=== PATIENT | male | born 1980 | race African-American/Black ===

== ENCOUNTER 2016-10-28 19:57 | Emergency (ER) | payer MEDICAID ==
[~2016-10-28] VITALS: Ht 188 cm; Wt 80.0 kg
[2016-10-28 20:00] VITALS: BP 112/60; PULSE 120; RESP 20; TEMP 98.2; O2SAT 98
[2016-10-28] MEDS ORDERED: SODIUM CHLOR 0.9% 1000 ML INJ 1,000 ML IV ONE (22:00)
--- NOTE | 2016-10-28 22:05 | PD ---
HPI Chief Complaint: Medical Clearance Time Seen by Provider: 21:58 Travel History International Travel<30 days: No Contact w/Intl Traveler<30days: No Traveled to known affect area: No History of Present Illness HPI The patient is a 36-year-old [place] male who presents emergency department for detoxification. The patient states he went to [facility] earlier today and he referred him to [facility] for alcohol detoxification. The patient states he has been drinking malt liquor on a daily basis, approximately 2-3 per day, and wants to go through detoxification. He also notes a history of illicit drug use, last used "speed ", 3 days ago. He does complain of sleep deprivation of last 48 hours and states he has difficulty sleeping with minimal to no sleep over the last 2 days. The patient denies any history of psychiatric disorders including schizophrenia, bipolar affective disorder, or depression. The patient denies any suicidal or homicidal ideation. Symptoms are moderate, possibly exacerbated by drinking alcohol daily basis and the use of illicit drugs, and there are no current alleviating factors. PFSH Past Medical History Medical History: Denies Significant Hx Tetanus Vaccination: Unknown Influenza Vaccination: No Social History Alcohol Use: Yes (AT LEAST 48 OZ PER DAY) Tobacco Use: Yes (1/2 PPD) Substance Use: Yes (SPEED LAST USED 3 DAYS AGO) Allergies-Medications (Allergen,Severity, Reaction): Coded Allergies: Bactrim (Verified Allergy, Unknown, 10/28/16) Review of Systems Except as stated in HPI: all other systems reviewed are Neg General / Constitutional: Positive: Other (insomnia) HENT: No: Headaches, Lightheadedness Cardiovascular: No: Chest Pain or Discomfort Respiratory: No: Shortness of Breath Gastrointestinal: No: Nausea, Vomiting, Abdominal Pain Psychiatric: Positive: Substance Abuse, No: Depression, Suicidal Ideations, Disorder of Thought, Mood Disorder, Homicidal Ideation Physical Exam Narrative GENERAL: Awake, alert, 36-year-old male appears his stated age and is in no acute respiratory distress. SKIN: Warm and dry. HEAD: Atraumatic. Normocephalic. EYES: Pupils equal and round. Mild injection bilateral. ENT: No nasal bleeding or discharge. Mucous membranes pink and moist. NECK: Trachea midline. No JVD. CARDIOVASCULAR: Regular, tachycardic with a heart rate of 110. RESPIRATORY: No accessory muscle use. Clear to auscultation. Breath sounds equal bilaterally. GASTROINTESTINAL: Abdomen soft, non-tender, nondistended. No rebound tenderness. MUSCULOSKELETAL: No obvious deformities. No clubbing. No cyanosis. No edema. NEUROLOGICAL: Awake and alert. No obvious cranial nerve deficits. Motor grossly within normal limits. Normal speech. Nonfocal. Oriented 4. PSYCHIATRIC: Odd affect. Data Data Last Documented VS Vital Signs Date Time Temp Pulse Resp B/P Pulse Ox O2 Delivery O2 Flow Rate FiO2 10/28/16 20:00 98.2 120 20 112/60 98 Orders Basic Metabolic Panel (Bmp) (10/28/16 22:00) Magnesium (Mg) (10/28/16 22:00) Alcohol (Ethanol) (10/28/16 22:00) Drug Screen, Random Urine (10/28/16 22:00) Sodium Chlor 0.9% 1000 Ml Inj (Ns 1000 M (10/28/16 22:00) Labs Laboratory Tests Test 10/28/16 10/28/16 22:30 23:00 Urine Opiates Screen NEG Urine Barbiturates Screen NEG Urine Amphetamines Screen POS Urine Benzodiazepines Screen NEG Urine Cocaine Screen NEG Urine Cannabinoids Screen NEG Sodium Level 141 MEQ/L Potassium Level 3.6 MEQ/L Chloride Level 105 MEQ/L Carbon Dioxide Level 27.7 MEQ/L Anion Gap 8 MEQ/L Blood Urea Nitrogen 38 MG/DL Creatinine 1.20 MG/DL Estimat Glomerular Filtration 69 ML/MIN Rate Random Glucose 76 MG/DL Calcium Level 8.8 MG/DL Magnesium Level 2.4 MG/DL Ethyl Alcohol Level 17 MG/DL MDM Medical Decision Making Medical Screen Exam Complete: Yes Emergency Medical Condition: Yes Medical Record Reviewed: Yes Interpretation(s) Laboratory Tests Test 10/28/16 10/28/16 22:30 23:00 Urine Opiates Screen NEG Urine Barbiturates Screen NEG Urine Amphetamines Screen POS Urine Benzodiazepines Screen NEG Urine Cocaine Screen NEG Urine Cannabinoids Screen NEG Sodium Level 141 MEQ/L Potassium Level 3.6 MEQ/L Chloride Level 105 MEQ/L Carbon Dioxide Level 27.7 MEQ/L Anion Gap 8 MEQ/L Blood Urea Nitrogen 38 MG/DL Creatinine 1.20 MG/DL Estimat Glomerular Filtration 69 ML/MIN Rate Random Glucose 76 MG/DL Calcium Level 8.8 MG/DL Magnesium Level 2.4 MG/DL Ethyl Alcohol Level 17 MG/DL Differential Diagnosis Differential diagnosis includes polysubstance abuse, alcohol intoxication, illicit drug use, alcohol withdrawal, electrolyte abnormality, dehydration. Narrative Course IV was established, labs are drawn and sent, and the patient was placed on cardiac telemetry monitoring and continuous pulse oximetry monitoring. The patient was administered 1 L of IV fluids. Alcohol level and tox screen were sent to lab. Labs are unremarkable. Tox screen is positive for methamphetamines and alcohol. Patient will be allowed to sleep it off. He will be discharged home on decreasing dose of Librium. He is advised to follow- up [facility]. Diagnosis Primary Impression: Polysubstance abuse Patient Instructions: General Instructions Additional Instructions: Librium as directed. Follow-up at [facility]. Return if symptoms worsen or progress. Med/Other Pt SpecificInfo: Prescription(s) given Scripts Chlordiazepoxide 25 Mg Cap25 Mg PO QID #20 CAP Ref 0 Prov:Esequiel Dahl MD 10/29/16 Disposition: 01 DISCHARGE HOME Condition: Stable Esequiel Dahl MD Oct 28, 2016 22:05
[2016-10-28 23:06] LABS: AMPHETAMINE, URINE POS (NEG); BARBITURATES, URINE NEG (NEG); COCAINE, URINE NEG (NEG)
[2016-10-28 23:36] LABS: BICARBONATE 27.7 MEQ/L (21.0-32.0); MAGNESIUM 2.4 MG/DL (1.5-2.5); POTASSIUM 3.6 MEQ/L (3.5-5.1)
[2016-10-29] MEDS ORDERED: CHLO25CA2 PO (00:14)
== END 2016-10-29 06:33 | disposition home or self-care (01) ==
LOC: EDBD → NEPA 19:57
DX: F19.10 Other psychoactive substance abuse, uncomplicated (principal); F17.210 Nicotine dependence, cigarettes, uncomplicated; G47.00 Insomnia, unspecified
CPT/HCPCS: 80048; 80307; 80320; 83735; 96360; 99283; J7030

== ENCOUNTER 2017-01-16 20:50 | Emergency (ER) | payer MEDICAID ==
[~2017-01-16] VITALS: Ht 180.3 cm; Wt 75.0 kg
[~2017-01-16 20:50] MED LIST: CHLO25CA2 PO
[2017-01-16 20:52] VITALS: BP 136/70; PULSE 116; RESP 18; TEMP 98.8; O2SAT 98
--- NOTE | 2017-01-16 23:42 | PD ---
HPI Chief Complaint: Medical Clearance Time Seen by Provider: 23:42 Travel History International Travel<30 days: No Contact w/Intl Traveler<30days: No Traveled to known affect area: No History of Present Illness HPI 36-year-old male came to the emergency room for using Adderall off the street. He thinks he is addicted to them and has been abusing it. He was prescribed Adderall 10 years ago for attention deficit. Currently he has been using it thinking that it would help him focus. But he is getting these off the street and today he used 3 pills all at the same time in the morning. He occasionally also gets pain pills off the street. Other drugs here and there but not on a routine basis. His business development assistant brought him here because earlier today this morning he found him unable to process things as he was talking to him. He was concerned about him. PFSH Past Medical History Narrative Medical List of his past medical, surgical, social and family history is reviewed from the nursing note. ADHD: Yes Diminished Hearing: No Tetanus Vaccination: Unknown Influenza Vaccination: No Social History Alcohol Use: Yes (AT LEAST 48 OZ PER DAY) Tobacco Use: Yes (1/2 PPD) Substance Use: Yes (SPEED LAST USED 3 DAYS AGO) Allergies-Medications (Allergen,Severity, Reaction): Coded Allergies: Bactrim (Verified Allergy, Unknown, 01/16/17) Comments List of his allergies reviewed from the nursing note. Reported Meds & Prescriptions Reported Meds & Active Scripts Active Chlordiazepoxide (Chlordiazepoxide HCl) 25 Mg Cap 25 Mg PO QID Narrative Medication List of his home medications reviewed from the nursing note. Review of Systems Except as stated in HPI: all other systems reviewed are Neg Physical Exam Narrative GENERAL: Awake, alert, no obvious distress SKIN: Focused skin assessment warm/dry. HEAD: Atraumatic. Normocephalic. EYES: Pupils equal and round. No scleral icterus. No injection or drainage. ENT: No nasal bleeding or discharge. Mucous membranes pink and moist. NECK: Trachea midline. No JVD. CARDIOVASCULAR: Regular rate and rhythm. No murmur appreciated. RESPIRATORY: No accessory muscle use. Clear to auscultation. Breath sounds equal bilaterally. GASTROINTESTINAL: Abdomen soft, non-tender, nondistended. Hepatic and splenic margins not palpable. MUSCULOSKELETAL: No obvious deformities. No clubbing. No cyanosis. No edema. NEUROLOGICAL: Awake and alert. No obvious cranial nerve deficits. Motor grossly within normal limits. Normal speech. PSYCHIATRIC: Appropriate mood and affect; insight and judgment normal. Pressure speech Data Data Last Documented VS Vital Signs Date Time Temp Pulse Resp B/P Pulse Ox O2 Delivery O2 Flow Rate FiO2 01/17/17 00:25 106 01/16/17 21:24 16 01/16/17 20:52 98.8 136/70 98 Room Air Orders Electrocardiogram (01/17/17 ) MDM Medical Decision Making Medical Screen Exam Complete: Yes Emergency Medical Condition: Yes Medical Record Reviewed: Yes Interpretation(s) Twelve-lead EKG was reviewed by me. Normal sinus rhythm, normal axis, tachycardia, nonspecific ST-T wave changes. Heart rate of 106 bpm. Differential Diagnosis Adderall abuse, substance abuse Narrative Course 11:58 PM I have advised the patient to stay of street drugs and try to go to [facility] and see if he can be checked in for drug rehabilitation. He will be given a pamphlet of [facility] that he can use as a primary care. Procedures EKG Prior to Arrival: No Diagnosis Primary Impression: Polysubstance abuse Referrals: Primary Care Physician Additional Instructions: Stay off street drugs. He need to get a primary care so that he can take medication properly prescribed by physician. Please go to [facility] which is also a drug rehabilitation institution. Return to the ER if the condition worsens or any other new concerns. Med/Other Pt SpecificInfo: No Change to Meds Disposition: 01 DISCHARGE HOME Condition: Stable Brendan Woods MD January 16, 2017 23:42
--- NOTE | 2017-01-17 14:18 | EKG ---
Date Performed: 01/17/2017 Time Performed: 00:18:00 PTAGE: 36 years EKG: SINUS TACHYCARDIA ABNORMAL RHYTHM ECG NO PREVIOUS TRACING DOCTOR: Lalo Naranjo Interpretating Date/Time 01/17/2017 14:16:50
== END 2017-01-17 00:26 | disposition home or self-care (01) ==
LOC: NEPD 20:50
DX: F19.10 Other psychoactive substance abuse, uncomplicated (principal); R94.31 Abnormal electrocardiogram [ECG] [EKG]; F17.210 Nicotine dependence, cigarettes, uncomplicated
CPT/HCPCS: 93005

== ENCOUNTER 2017-02-28 01:07 | Emergency (ER) | payer MEDICAID ==
[2017-02-28 01:09] VITALS: BP 116/74; PULSE 67; RESP 20; TEMP 98.7; O2SAT 96
[2017-02-28] MEDS ORDERED: PROPARACAINE HCL 0.5% OPHT SOLN 15 ML BTL LEFT EYE ONE (02:15)
--- NOTE | 2017-02-28 02:19 | PD ---
HPI Chief Complaint: Eye Problems/Injury Time Seen by Provider: 02:15 Travel History International Travel<30 days: No Contact w/Intl Traveler<30days: No Traveled to known affect area: No History of Present Illness HPI Patient is a 36-year-old male presenting to emergency for evaluation of left eye pain and redness. Patient states it started several days ago, he cannot state exactly when. He reports waking up one morning with pain in his eye, this is progressively gotten more red and painful. He denies any him headaches. He cannot open his left eye. He states it's been tearing. He does work contact lenses. PFSH Past Medical History ADHD: Yes Diminished Hearing: No Social History Alcohol Use: Yes (AT LEAST 48 OZ PER DAY) Tobacco Use: Yes (1/2 PPD) Substance Use: Yes (SPEED LAST USED 3 DAYS AGO) Allergies-Medications (Allergen,Severity, Reaction): Coded Allergies: Bactrim (Verified Allergy, Unknown, 02/28/17) Reported Meds & Prescriptions Reported Meds & Active Scripts Active No Active Prescriptions or Reported Medications Review of Systems Except as stated in HPI: all other systems reviewed are Neg Eyes: Positive: Blurred Vision, Drainage, Redness, Pain, Tearing Physical Exam Narrative GENERAL: Thin, well-developed, drowsy male. Resting comfortably in no acute distress. SKIN: Warm and dry. HEAD: Normocephalic. EYES: No scleral icterus. Significant injection to left eye clear drainage noted. Mild edema noted to upper eyelid. Pupils are equal, round, reactive. Extraocular movements are intact. Ulceration noted to the 3 o'clock position on the border of the left iris. NECK: Supple, trachea midline. No JVD or lymphadenopathy. CARDIOVASCULAR: Regular rate and rhythm without murmurs, gallops, or rubs. RESPIRATORY: Breath sounds equal bilaterally. No accessory muscle use. GASTROINTESTINAL: Abdomen soft, non-tender, nondistended. MUSCULOSKELETAL: No cyanosis, or edema. BACK: Nontender without obvious deformity. No CVA tenderness. Data Data Last Documented VS Vital Signs Date Time Temp Pulse Resp B/P Pulse Ox O2 Delivery O2 Flow Rate FiO2 02/28/17 01:09 98.7 67 20 116/74 96 Room Air Orders Proparacaine 0.5% Opth Soln (Alcaine 0.5 (02/28/17 02:15) Moxifloxacin 0.5% Opht Soln (Vigamox 0.5 (02/28/17 03:00) MDM Medical Decision Making Medical Screen Exam Complete: Yes Emergency Medical Condition: Yes Interpretation(s) Vital Signs Date Time Temp Pulse Resp B/P Pulse Ox O2 Delivery O2 Flow Rate FiO2 02/28/17 01:09 98.7 67 20 116/74 96 Room Air Differential Diagnosis Conjunctivitis versus keratitis versus episcleritis versus retained foreign body versus other Narrative Course Patient is a 36-year-old male presenting with left eye pain and redness for 2-3 days. He is a contact lens wear. Physical examination appears consistent with keratitis, patient will be started on moxifloxacin drops. First dose was administered in the emergency department. Patient states that he took NyQuil 2 hours prior to arrival, he is very drowsy. He will be allowed to sleep until he is alert enough to go home. He will be referred to ophthalmology. Patient was encouraged to follow-up with ophthalmology in the morning. He will be given the number of Dr. Munira Doyle. He was advised to return to emergency department immediately for any new or worsening symptoms. Discussed with my attending physician patient's presentation and physical exam findings. Patient is stable for discharge Diagnosis Primary Impression: Keratitis secondary to contact lens Referrals: Munira Doyle MD 1 day Call to make an appointment first thing in the morning Patient Instructions: General Instructions, Keratitis (ED) Additional Instructions: Do not use contact lenses Use medications as directed Follow-up with Dr. Doyle in the morning Return to emergency department immediately for any new or worsening symptoms Med/Other Pt SpecificInfo: Prescription(s) given Scripts Moxifloxacin Opth Drops (Vigamox Opth Drops)0.5 % Soln1 Drop LEFT EYE TID 7 Days Ref 0 Prov:Ciera Hale 02/28/17 Disposition: 01 DISCHARGE HOME Condition: Stable Ciera Hale Feb 28, 2017 02:19
[2017-02-28] MEDS ORDERED: MOXIFLOXACIN 0.5% OPHT SOLN 3 ML BTL LEFT EYE ONE (03:00)
[2017-02-28] MEDS ORDERED: VIGA0.5D LEFT EYE (03:16)
== END 2017-02-28 06:32 | disposition home or self-care (01) ==
LOC: NEPD 01:07
DX: H16.8 Other keratitis (principal); F17.200 Nicotine dependence, unspecified, uncomplicated; Z86.59 Personal history of other mental and behavioral disorders
CPT/HCPCS: 99283

== ENCOUNTER 2017-05-03 21:13 | Inpatient (IN) | payer MEDICAID ==
[~2017-05-03] VITALS: Ht 185.4 cm; Wt 72.7 kg
[~2017-05-03 21:13] MED LIST changes: -CHLO25CA2 PO; +VIGA0.5D LEFT EYE
[2017-05-03 21:25] VITALS: BP 116/82; PULSE 122; RESP 16; TEMP 98.5; O2SAT 96
--- NOTE | 2017-05-03 21:57 | PD ---
Physical Exam Date Seen by Provider: May 03, 2017 Time Seen by Provider: 21:54 Narrative 36 yo male here for evaluation of substance abuse. Came via [facility] to triage. No sleeping for two days and used substances. Last used two days ago. Feels very anxious. No pain. No recent travel. No injuries. History of polysubstance abuse. Very delusional and states being paranoid. Vitals stable in triage. Awaiting bed placement Data Data Last Documented VS Vital Signs Date Time Temp Pulse Resp B/P (MAP) Pulse Ox O2 Delivery O2 Flow Rate FiO2 05/03/17 21:25 98.5 122 16 116/82 (93) 96 Room Air Orders Orders Complete Blood Count With Diff (05/03/17 21:58) Comprehensive Metabolic Panel (05/03/17 21:58) Drug Screen, Random Urine (05/03/17 21:58) Alcohol (Ethanol) (05/03/17 21:58) Salicylates (Aspirin) (05/03/17 21:58) Tylenol (Acetaminophen) (05/03/17 21:58) MDM Medical Record Reviewed: Yes Supervised Visit with ZIGGY: Jhony Marina May 03, 2017 21:57
[2017-05-03 23:58] VITALS: BP 120/70; PULSE 91; RESP 20; TEMP 97.9; O2SAT 97
--- NOTE | 2017-05-04 00:17 | PD ---
HPI Chief Complaint: Anxiety Time Seen by Provider: 00:10 Travel History International Travel<30 days: No Contact w/Intl Traveler<30days: No Traveled to known affect area: No History of Present Illness HPI 36-year-old male with history of substance abuse, presents to the emergency department for evaluation of possible dehydration after using Laury 3 days ago. Patient reports that this was a relapse. He did inject Laury one time during his binge. Patient denies suicidal or homicidal ideations. States that he feels anxious. This is consistent for when he is coming off of his Laury binges. Denies any chest pain or tightness. He has had no fever or chills. He has no other symptoms to report. [facility] Past Medical History Medical History: Denies Significant Hx ADHD: Yes Diminished Hearing: No Immunizations Current: No Tetanus Vaccination: Unknown Influenza Vaccination: No Social History Alcohol Use: Yes (AT LEAST 48 OZ PER DAY) Tobacco Use: Yes (1/2 PPD) Substance Use: Yes (SPEED LAST USED 3 DAYS AGO) Allergies-Medications (Allergen,Severity, Reaction): Coded Allergies: sulfamethoxazole (Unverified Allergy, Unknown, 04/18/17) trimethoprim (Unverified Allergy, Unknown, 04/18/17) Reported Meds & Prescriptions Reported Meds & Active Scripts Active No Active Prescriptions or Reported Medications Review of Systems Except as stated in HPI: all other systems reviewed are Neg Physical Exam Narrative GENERAL: Thin male patient, with jerk like movements, moderately anxious appearing SKIN: Focused skin assessment warm/dry. Multiple superficial scratches over his extremities. HEAD: Atraumatic. Normocephalic. EYES: Pupils equal and round. No scleral icterus. No injection or drainage. ENT: No nasal bleeding or discharge. Mucous membranes pink and moist. NECK: Trachea midline. No JVD. CARDIOVASCULAR: Tachycardic rate and rhythm. RESPIRATORY: No accessory muscle use. Clear to auscultation. Breath sounds equal bilaterally. GASTROINTESTINAL: Abdomen soft, non-tender, nondistended. Hepatic and splenic margins not palpable. MUSCULOSKELETAL: No obvious deformities. No clubbing. No cyanosis. No edema. NEUROLOGICAL: Awake and alert. No obvious cranial nerve deficits. Motor grossly within normal limits. Normal speech. Data Data Last Documented VS Vital Signs Date Time Temp Pulse Resp B/P (MAP) Pulse Ox O2 Delivery O2 Flow Rate FiO2 05/03/17 23:58 97.9 91 20 120/70 (87) 97 Room Air Orders Orders Complete Blood Count With Diff (05/03/17 21:58) Comprehensive Metabolic Panel (05/03/17 21:58) Drug Screen, Random Urine (05/03/17 21:58) Alcohol (Ethanol) (05/03/17 21:58) Salicylates (Aspirin) (05/03/17 21:58) Tylenol (Acetaminophen) (05/03/17 21:58) Creatine Kinase (Cpk) (05/04/17 00:16) Iv Access Insert/Monitor (05/04/17 00:17) Sodium Chlor 0.9% 1000 Ml Inj (Ns 1000 M (05/04/17 00:30) Sodium Chlor 0.9% 1000 Ml Inj (Ns 1000 M (05/04/17 00:30) MDM Medical Decision Making Medical Screen Exam Complete: Yes Emergency Medical Condition: Yes Medical Record Reviewed: Yes Differential Diagnosis Polysubstance abuse versus anxiety versus dehydration versus bite abnormality versus rhabdomyolysis Narrative Course 36-year-old male presents to emergency department for evaluation. Patient has history of polysubstance abuse and admits to Laury use 3 days ago. Feels dehydrated. He appears anxious, without distress. He is mildly tachycardic. I discussed the patient's my attending physician Dr. Saravia who recommends lab work and IV fluid. This is initiated 0100 patient is signed out to Israel Bautista PAC. Disposition will pend his judgment. Diagnosis Primary Impression: Polysubstance abuse Scripts No Active Prescriptions or Reported Meds Condition: Stable Kasia Velasquez May 04, 2017 00:17
[2017-05-04] MEDS ORDERED: SODIUM CHLOR 0.9% 1000 ML INJ 1,000 ML IV ONE ×3 (00:30→10:30)
--- NOTE | 2017-05-04 01:00 | PD ---
Physical Exam Time Seen by Provider: 01:50 Data Data Last Documented VS Vital Signs Date Time Temp Pulse Resp B/P (MAP) Pulse Ox O2 Delivery O2 Flow Rate FiO2 05/03/17 23:58 97.9 91 20 120/70 (87) 97 Room Air Orders Orders Complete Blood Count With Diff (05/03/17 21:58) Comprehensive Metabolic Panel (05/03/17 21:58) Drug Screen, Random Urine (05/03/17 21:58) Alcohol (Ethanol) (05/03/17 21:58) Salicylates (Aspirin) (05/03/17 21:58) Tylenol (Acetaminophen) (05/03/17 21:58) Creatine Kinase (Cpk) (05/04/17 00:16) Iv Access Insert/Monitor (05/04/17 00:17) Sodium Chlor 0.9% 1000 Ml Inj (Ns 1000 M (05/04/17 00:30) Sodium Chlor 0.9% 1000 Ml Inj (Ns 1000 M (05/04/17 00:30) CKMB (05/04/17 00:40) CKMB% (05/04/17 00:40) Lactic Acid (05/04/17 02:03) Admit Order (Ed Use Only) (05/04/17 02:10) Labs Laboratory Tests Test 05/04/17 00:40 05/04/17 00:45 05/04/17 01:20 05/04/17 02:08 Blood Urea Nitrogen 54 MG/DL Creatinine 5.54 MG/DL Random Glucose 73 MG/DL Total Protein 9.6 GM/DL Albumin 4.9 GM/DL Calcium Level 9.2 MG/DL Alkaline Phosphatase 102 U/L Aspartate Amino Transf (AST/SGOT) 58 U/L Alanine Aminotransferase (ALT/SGPT) 57 U/L Total Bilirubin 1.2 MG/DL Sodium Level 137 MEQ/L Potassium Level 4.4 MEQ/L Chloride Level 96 MEQ/L Carbon Dioxide Level 18.7 MEQ/L Anion Gap 22 MEQ/L Estimat Glomerular Filtration Rate 14 ML/MIN Total Creatine Kinase 869 U/L Creatine Kinase MB 15.5 NG/ML Creatine Kinase MB % 1.8 % Acetaminophen Level LESS THAN 2.0 MCG/ML Ethyl Alcohol Level LESS THAN 3 MG/DL White Blood Count 11.2 TH/MM3 Red Blood Count 4.84 MIL/MM3 Hemoglobin 12.5 GM/DL Hematocrit 38.0 % Mean Corpuscular Volume 78.5 FL Mean Corpuscular Hemoglobin 25.8 PG Mean Corpuscular Hemoglobin Concent 32.9 % Red Cell Distribution Width 14.7 % Platelet Count 301 TH/MM3 Mean Platelet Volume 6.8 FL Neutrophils (%) (Auto) 75.1 % Lymphocytes (%) (Auto) 16.2 % Monocytes (%) (Auto) 8.4 % Eosinophils (%) (Auto) 0.0 % Basophils (%) (Auto) 0.3 % Neutrophils # (Auto) 8.4 TH/MM3 Lymphocytes # (Auto) 1.8 TH/MM3 Monocytes # (Auto) 0.9 TH/MM3 Eosinophils # (Auto) 0.0 TH/MM3 Basophils # (Auto) 0.0 TH/MM3 CBC Comment DIFF FINAL Differential Comment Salicylates Level LESS THAN 1.7 MG/DL Urine Opiates Screen NEG Urine Barbiturates Screen NEG Urine Amphetamines Screen NEG Urine Benzodiazepines Screen POS Urine Cocaine Screen NEG Urine Cannabinoids Screen NEG Lactic Acid Level 0.7 mmol/L [facility] Medical Record Reviewed: Yes Supervised Visit with ZIGGY: No Narrative Course This patient was signed out to me pending lab work. Please see previous providers notes. Briefly this is a 36-year-old male who came in with the chief complaint of anxiety, possible dehydration. He reports that he ingested Laury 3 days ago and he has not been eating and drinking since then. He has been feeling anxious. He received 2 L of IV fluids prior to my examination. Upon my examination he reports that he feels fine but he is clearly anxious, acting somewhat bizarre, walking around in his boxer's. Initial heart rate was 122 which was improved to 91 when he was roomed. Vital signs were otherwise stable. Lab work is notable for a BUN of 54, creatinine 5.54, GFR 14, anion gap 22, carbon dioxide 18.7, total CK 869. Toxicology positive for benzodiazepines. Normal salicylate/Tylenol levels. Lactic acid has been added on given his elevated anion gap. The plan at this time is to admit the patient for acute renal failure, elevated CK, substance abuse. Discussed with Dr. Castillo who is agreeable. Diagnosis Primary Impression: Polysubstance abuse Additional Impressions: Acute renal failure Qualified Codes: N17.9 - Acute kidney failure, unspecified Elevated CK Admitting Information Admitting Physician Requests: Admit Scripts No Active Prescriptions or Reported Meds Condition: Israel Manuel May 04, 2017 01:00
[2017-05-04 01:17] LABS: AUTOMATED NEUTROPHIL # 8.4 TH/MM3 (1.8-7.7); BASOPHIL % 0.3 % (0.0-2.0); HEMO FLAGS DIFF FINAL; LYMPH % 16.2 % (9.0-44.0); LYMPHOCYTE # 1.8 TH/MM3 (1.0-4.8); MEAN CELL VOLUME 78.5 FL (80.0-100.0); MEAN CORPUSCULAR HEMOGLOBIN 25.8 PG (27.0-34.0); MEAN CORPUSCULAR HGB CONC 32.9 % (32.0-36.0); MONO % 8.4 % (0.0-8.0); NEUT % 75.1 % (16.0-70.0); PLATELET COUNT 301 TH/MM3 (150-450); RED BLOOD COUNT 4.84 MIL/MM3 (4.50-5.90); RED CELL DISTRIBUTION WIDTH 14.7 % (11.6-17.2); WHITE BLOOD COUNT 11.2 TH/MM3 (4.0-11.0)
[2017-05-04 01:22] LABS: ANION GAP 22 MEQ/L (5-15)
[2017-05-04 01:28] LABS: ACETAMINOPHEN LESS THAN 2.0 MCG/ML (10.0-30.0); ALCOHOL LESS THAN 3 MG/DL (0-5); ALKALINE PHOSPHATASE 102 U/L (45-117); ALT (GPT) 57 U/L (12-78); AST (GOT) 58 U/L (15-37); BICARBONATE 18.7 MEQ/L (21.0-32.0); BLOOD UREA NITROGEN 54 MG/DL (7-18); CHLORIDE 96 MEQ/L (98-107); GLOMERULAR FILTRATION RATE 14 ML/MIN (>89); POTASSIUM 4.4 MEQ/L (3.5-5.1); SODIUM (NA) 137 MEQ/L (136-145); TOTAL BILIRUBIN ADULT 1.2 MG/DL (0.2-1.0)
[2017-05-04 01:31] LABS: CKMB 15.5 NG/ML (0.5-3.6)
[2017-05-04] MEDS ORDERED: NALOXONE HCL 0.4 MG/ML AMP IV PRN (02:15)
[2017-05-04] MEDS ORDERED: SODIUM CHLORIDE 0.9% FLUSH 10 ML FLUSH IV FLUSH PRN (02:15)
[2017-05-04 04:06] VITALS: BP 118/74; PULSE 91; RESP 18; O2SAT 100
[2017-05-04 04:45] VITALS: BP 114/77; PULSE 94; RESP 20; TEMP 97.4; O2SAT 99
[2017-05-04 08:00] VITALS: BP 122/73; PULSE 93; RESP 18; TEMP 98.1; O2SAT 94
[2017-05-04] MEDS: SODIUM CHLORIDE 0.9% FLUSH 10 ML FLUSH IV FLUSH SCH ×2 (09:00→21:00)
--- NOTE | 2017-05-04 10:17 | HHI.HP ---
[facility] Admission Diagnosis acute renal failure, elevated CK, substance abuse Diagnoses: Chief Complaint: Anxiety Travel History International Travel<30 Days: No Contact w/Intl Traveler <30 Da: No Traveled to Known Affected Are: No History of Present Illness This is a pleasant 36 y/o Male with history of Polysubstance abuse, came to ER with Possible dehydration after using Laury (Ecstasy) 3 days ago dehydrated, as per patient this was a relapse, He did inject Laury one time during his binge. Patient denies suicidal or homicidal ideations. came to ER with Anxiety, This is consistent for when he is coming off of his Laury binges. seen in his bedroom in the presence of nurse Joy Jayme patient stable receiving IV fluids for Rhabdomyolysis will follow closely. Review of Systems Constitutional: DENIES: Fever, Chills, Change in appetite Endocrine: DENIES: Heat/cold intolerance Eyes: DENIES: Blurred vision, Eye pain Except as stated in HPI: all other systems reviewed are Neg Past Family Social History Past Medical History ADHD Past Surgical History left shoulder surgery Reported Medications Reported Meds & Active Scripts Active No Active Prescriptions or Reported Medications Allergies: Coded Allergies: sulfamethoxazole (Unverified Allergy, Unknown, 04/18/17) trimethoprim (Unverified Allergy, Unknown, 04/18/17) Active Ordered Medications Current Medications Medications (Trade) Dose Ordered Sig/John Route Start Time Stop Time Status Last Admin (NS Flush) 2 ml UNSCH PRN IV FLUSH 05/04/17 02:15 (NS Flush) 2 ml BID IV FLUSH 05/04/17 09:00 (Narcan Inj) 0.4 mg UNSCH PRN IV 05/04/17 02:15 Family History asked the patient and is negative. Social History Alcohol abuse at least 48 ounce per day Half pack of cigarettes daily Polysubstance abuse Physical Exam Vital Signs Vital Signs Date Time Temp Pulse Resp B/P (MAP) Pulse Ox O2 Delivery O2 Flow Rate FiO2 05/04/17 08:00 98.1 93 18 122/73 (89) 94 05/04/17 04:45 97.4 94 20 114/77 (89) 99 05/04/17 04:43 05/04/17 04:06 91 18 118/74 (89) 100 Room Air 05/03/17 23:58 97.9 91 20 120/70 (87) 97 Room Air 05/03/17 21:25 98.5 122 16 116/82 (93) 96 Room Air Physical Exam GENERAL: Thin male patient, with jerk like movements, moderately anxious appearing SKIN: Focused skin assessment warm/dry. Multiple superficial scratches over his extremities. HEAD: Atraumatic. Normocephalic. EYES: Pupils equal and round. No scleral icterus. No injection or drainage. ENT: No nasal bleeding or discharge. Mucous membranes pink and moist. NECK: Trachea midline. No JVD. CARDIOVASCULAR: Tachycardic rate and rhythm. RESPIRATORY: No accessory muscle use. Clear to auscultation. Breath sounds equal bilaterally. GASTROINTESTINAL: Abdomen soft, non-tender, nondistended. Hepatic and splenic margins not palpable. MUSCULOSKELETAL: No obvious deformities. No clubbing. No cyanosis. No edema. NEUROLOGICAL: Awake and alert. No obvious cranial nerve deficits. Motor grossly within normal limits. Normal speech. Laboratory Laboratory Tests Test 05/04/17 00:40 05/04/17 00:45 05/04/17 01:20 05/04/17 02:08 Blood Urea Nitrogen 54 Creatinine 5.54 Random Glucose 73 Total Protein 9.6 Albumin 4.9 Calcium Level 9.2 Alkaline Phosphatase 102 Aspartate Amino Transf (AST/SGOT) 58 Alanine Aminotransferase (ALT/SGPT) 57 Total Bilirubin 1.2 Sodium Level 137 Potassium Level 4.4 Chloride Level 96 Carbon Dioxide Level 18.7 Anion Gap 22 Estimat Glomerular Filtration Rate 14 Total Creatine Kinase 869 Creatine Kinase MB 15.5 Creatine Kinase MB % 1.8 Acetaminophen Level LESS THAN 2.0 Ethyl Alcohol Level LESS THAN 3 White Blood Count 11.2 Red Blood Count 4.84 Hemoglobin 12.5 Hematocrit 38.0 Mean Corpuscular Volume 78.5 Mean Corpuscular Hemoglobin 25.8 Mean Corpuscular Hemoglobin Concent 32.9 Red Cell Distribution Width 14.7 Platelet Count 301 Mean Platelet Volume 6.8 Neutrophils (%) (Auto) 75.1 Lymphocytes (%) (Auto) 16.2 Monocytes (%) (Auto) 8.4 Eosinophils (%) (Auto) 0.0 Basophils (%) (Auto) 0.3 Neutrophils # (Auto) 8.4 Lymphocytes # (Auto) 1.8 Monocytes # (Auto) 0.9 Eosinophils # (Auto) 0.0 Basophils # (Auto) 0.0 CBC Comment DIFF FINAL Differential Comment Salicylates Level LESS THAN 1.7 Urine Opiates Screen NEG Urine Barbiturates Screen NEG Urine Amphetamines Screen NEG Urine Benzodiazepines Screen POS Urine Cocaine Screen NEG Urine Cannabinoids Screen NEG Lactic Acid Level 0.7 Result Diagram: 05/04/17 0045 05/04/1739 Imaging No imaging studies Caprini VTE Risk Assessment Caprini VTE Risk Assessment: No/Low Risk (score <= 1) Caprini Risk Assessment Model Point Value = 1 Point Value = 2 Point Value = 3 Point Value = 5 Age 41-60 Minor surgery BMI > 25 kg/m2 Swollen legs Varicose veins or History of unexplained or recurrent spontaneous Oral contraceptives or hormone replacement Sepsis (< 1 month) Serious lung disease, including pneumonia (< 1 month) Abnormal pulmonary function Acute myocardial infarction Congestive heart failure (< 1 month) History of inflammatory bowel disease Medical patient at bed rest Age 61-74 Arthroscopic surgery Major open surgery (> 45 min) Laparoscopic surgery (> 45 min) Malignancy Confined to bed (> 72 hours) Immobilizing plaster cast Central venous access Age >= 75 History of VTE Family history of VTE Factor V Leiden Prothrombin [id number] Lupus anticoagulant Anticardiolipin antibodies Elevated serum homocysteine Heparin-induced thrombocytopenia Other congenital or acquired thrombophilia Stroke (< 1 month) Elective arthroplasty Hip, pelvis, or leg fracture Acute spinal cord injury (< 1 month) Prophylaxis Regimen Total Risk Factor Score Risk Level Prophylaxis Regimen 0-1 Low Early ambulation 2 Moderate Order ONE of the following: *Sequential Compression Device (SCD) *Heparin 5000 units SQ BID 3-4 Higher Order ONE of the following medications: *Heparin 5000 units SQ TID *Enoxaparin/Lovenox 40 mg SQ daily (WT < 150 kg, CrCl > 30 mL/min) *Enoxaparin/Lovenox 30 mg SQ daily (WT < 150 kg, CrCl > 10-29 mL/min) *Enoxaparin/Lovenox 30 mg SQ BID (WT < 150 kg, CrCl > 30 mL/min) AND/OR *Sequential Compression Device (SCD) 5 or more Highest Order ONE of the following medications: *Heparin 5000 units SQ TID (Preferred with Epidurals) *Enoxaparin/Lovenox 40 mg SQ daily (WT < 150 kg, CrCl > 30 mL/min) *Enoxaparin/Lovenox 30 mg SQ daily (WT < 150 kg, CrCl > 10-29 mL/min) *Enoxaparin/Lovenox 30 mg SQ BID (WT < 150 kg, CrCl > 30 mL/min) AND *Sequential Compression Device (SCD) Assessment and Plan Assessment and Plan 1. Acute Kidney Injury Improving with IV fluids 2. Dehydration improved 3. Rhabdomyolysis waiting new CK result and continue IV fluids 4. Polysubstance abuse/Alcohol abuse and Tobacco dependence strongly recommended about this kind of behavior consulted bowling alley manager to try to find resources in the community to help the patient. Follow for discharge in am tomorrow. Code Status Full Code. Discussed Condition With Patient all questions answered to the best of my abilities. Marcos Ramos MD May 04, 2017 10:17
[2017-05-04] MEDS ORDERED: SODIUM CHLOR 0.9% 1000 ML INJ 1,000 ML IV SCH (11:30)
[2017-05-04 12:00] VITALS: BP 107/71; PULSE 73; RESP 18; TEMP 97.5; O2SAT 100
[2017-05-04 13:50] LABS: BICARBONATE 21.1 MEQ/L (21.0-32.0); POTASSIUM 4.1 MEQ/L (3.5-5.1)
[2017-05-04] MEDS: ACETAMINOPHEN 325 MG TAB PO PRN ×2 (14:15→23:57)
[2017-05-04 14:32] LABS: CKMB 34.6 NG/ML (0.5-3.6)
[2017-05-04 16:00] VITALS: BP 108/58; PULSE 79; RESP 18; TEMP 98.3; O2SAT 97
[2017-05-04 21:28] VITALS: BP 94/51; PULSE 83; RESP 16; TEMP 97.9; O2SAT 95
[2017-05-05 00:56] VITALS: BP 109/73; PULSE 77; RESP 16; TEMP 98; O2SAT 97
[2017-05-05 04:52] VITALS: BP 111/59; PULSE 69; RESP 18; TEMP 97.7; O2SAT 98
[2017-05-05 08:31] VITALS: BP 115/66; PULSE 65; RESP 16; TEMP 98.2; O2SAT 96
[2017-05-05 10:43] LABS: AUTOMATED NEUTROPHIL # 3.1 TH/MM3 (1.8-7.7); BASOPHIL % 0.7 % (0.0-2.0); EOSINOPHIL # 0.1 TH/MM3 (0-0.4); EOSINOPHIL % 3.2 % (0.0-4.0); HEMATOCRIT 35.5 % (39.0-51.0); HEMO FLAGS DIFF FINAL; MEAN CELL VOLUME 79.9 FL (80.0-100.0); MEAN CORPUSCULAR HEMOGLOBIN 26.2 PG (27.0-34.0); MEAN CORPUSCULAR HGB CONC 32.8 % (32.0-36.0); MONO % 9.5 % (0.0-8.0); NEUT % 64.6 % (16.0-70.0); PLATELET COUNT 202 TH/MM3 (150-450); RED BLOOD COUNT 4.44 MIL/MM3 (4.50-5.90); RED CELL DISTRIBUTION WIDTH 15.8 % (11.6-17.2); WHITE BLOOD COUNT 4.7 TH/MM3 (4.0-11.0)
[2017-05-05 11:01] LABS: BICARBONATE 22.5 MEQ/L (21.0-32.0); POTASSIUM 4.4 MEQ/L (3.5-5.1)
[2017-05-05 11:32] LABS: CKMB 0.8 NG/ML (0.5-3.6)
--- NOTE | 2017-05-05 12:20 | EKG ---
Date Performed: 05/04/2017 Time Performed: 02:16:20 PTAGE: 36 years EKG: Sinus rhythm WITH SINUS ARRHYTHMIA NORMAL ECG PREVIOUS TRACING 01/17/17 Sinus arrhythmia replaces sinus tachycardia. DOCTOR: Terrance Gaviria Interpretating Date/Time 05/05/2017 12:19:23
[2017-05-05 12:22] VITALS: BP 115/74; PULSE 80; RESP 18; TEMP 98.1; O2SAT 97
--- NOTE | 2017-05-05 12:34 | HHI.PR ---
Subjective Remarks This is a pleasant 36 y/o Male with history of Polysubstance abuse, came to ER with Possible dehydration after using Laury (Ecstasy) 3 days ago dehydrated, as per patient this was a relapse, He did inject Laury one time during his binge. Patient denies suicidal or homicidal ideations. came to ER with Anxiety, This is consistent for when he is coming off of his Laury binges. seen in his bedroom in the presence of nurse Mr. Delacruz patient stable receiving IV fluids for Rhabdomyolysis will follow closely. Seen in his bedroom stable he wants to go home his renal function improved and is improving his Creatinine level, at this time okay to discharge Home and follow with PCP in 2 days. recommended to continue drinking water. Objective Vital Signs Date Time Temp Pulse Resp B/P (MAP) Pulse Ox O2 Delivery O2 Flow Rate FiO2 05/05/17 12:22 98.1 80 18 115/74 (88) 97 05/05/17 08:31 98.2 65 16 115/66 (82) 96 05/05/17 04:52 97.7 69 18 111/59 (76) 98 05/05/17 00:56 98.0 77 16 109/73 (85) 97 05/04/17 21:28 97.9 83 16 94/51 (65) 95 05/04/17 16:00 98.3 79 18 108/58 (75) 97 I/O 05/04/17 05/04/17 05/04/17 05/05/17 05/05/17 05/05/17 06:59 14:59 22:59 06:59 14:59 22:59 Intake Total 1190 ml Balance 1190 ml Intake IV Total 1190 ml # Voids 3 # Bowel Movements 0 Result Diagram: 05/05/17 0940 05/05/17 0940 Imaging No imaging studies performed. Procedures None Other Results Laboratory Tests Test 05/04/17 00:40 05/04/17 00:45 05/04/17 01:20 05/04/17 02:08 Blood Urea Nitrogen 54 MG/DL Creatinine 5.54 MG/DL Random Glucose 73 MG/DL Total Protein 9.6 GM/DL Albumin 4.9 GM/DL Calcium Level 9.2 MG/DL Alkaline Phosphatase 102 U/L Aspartate Amino Transf (AST/SGOT) 58 U/L Alanine Aminotransferase (ALT/SGPT) 57 U/L Total Bilirubin 1.2 MG/DL Sodium Level 137 MEQ/L Potassium Level 4.4 MEQ/L Chloride Level 96 MEQ/L Carbon Dioxide Level 18.7 MEQ/L Acetaminophen Level LESS THAN 2.0 MCG/ML Ethyl Alcohol Level LESS THAN 3 MG/DL Salicylates Level LESS THAN 1.7 MG/DL Urine Opiates Screen NEG Urine Barbiturates Screen NEG Urine Amphetamines Screen NEG Urine Benzodiazepines Screen POS Urine Cocaine Screen NEG Urine Cannabinoids Screen NEG Lactic Acid Level 0.7 mmol/L Test 05/05/17 09:40 White Blood Count 4.7 TH/MM3 Red Blood Count 4.44 MIL/MM3 Hemoglobin 11.6 GM/DL Hematocrit 35.5 % Mean Corpuscular Volume 79.9 FL Mean Corpuscular Hemoglobin 26.2 PG Mean Corpuscular Hemoglobin Concent 32.8 % Red Cell Distribution Width 15.8 % Platelet Count 202 TH/MM3 Mean Platelet Volume 6.8 FL Neutrophils (%) (Auto) 64.6 % Lymphocytes (%) (Auto) 22.0 % Monocytes (%) (Auto) 9.5 % Eosinophils (%) (Auto) 3.2 % Basophils (%) (Auto) 0.7 % Neutrophils # (Auto) 3.1 TH/MM3 Lymphocytes # (Auto) 1.0 TH/MM3 Monocytes # (Auto) 0.4 TH/MM3 Eosinophils # (Auto) 0.1 TH/MM3 Basophils # (Auto) 0.0 TH/MM3 CBC Comment DIFF FINAL Differential Comment Blood Urea Nitrogen 27 MG/DL Creatinine 0.68 MG/DL Random Glucose 85 MG/DL Calcium Level 8.0 MG/DL Sodium Level 143 MEQ/L Potassium Level 4.4 MEQ/L Chloride Level 113 MEQ/L Carbon Dioxide Level 22.5 MEQ/L Anion Gap 8 MEQ/L Estimat Glomerular Filtration Rate 162 ML/MIN Total Creatine Kinase 2092 U/L Creatine Kinase MB 0.8 NG/ML Creatine Kinase MB % 0.0 % Objective Remarks GENERAL: Alert and oriented, no distress SKIN: Focused skin assessment warm/dry. Multiple superficial scratches over his extremities. HEAD: Atraumatic. Normocephalic. EYES: Pupils equal and round. No scleral icterus. No injection or drainage. ENT: No nasal bleeding or discharge. Mucous membranes pink and moist. NECK: Trachea midline. No JVD. CARDIOVASCULAR: Tachycardic rate and rhythm. RESPIRATORY: No accessory muscle use. Clear to auscultation. Breath sounds equal bilaterally. GASTROINTESTINAL: Abdomen soft, non-tender, nondistended. Hepatic and splenic margins not palpable. MUSCULOSKELETAL: No obvious deformities. No clubbing. No cyanosis. No edema. NEUROLOGICAL: Awake and alert. No obvious cranial nerve deficits. Motor grossly within normal limits. Normal speech. Medications and IVs Current Medications Medications (Trade) Dose Ordered Sig/John Route Start Time Stop Time Status Last Admin (NS Flush) 2 ml UNSCH PRN IV FLUSH 05/04/17 02:15 (NS Flush) 2 ml BID IV FLUSH 05/04/17 09:00 05/04/17 21:00 (Narcan Inj) 0.4 mg UNSCH PRN IV 05/04/17 02:15 Sodium Chloride 1,000 ml @ 200 mls/hr Q5H IV 05/04/17 11:30 05/05/17 05:40 (Tylenol) 650 mg Q4H PRN PO 05/04/17 14:15 05/04/17 23:57 A/P Assessment and Plan 1. Acute Kidney Injury Improved 2. Dehydration improved 3. Rhabdomyolysis waiting new CK 2092 asked to continue drinking fluids and follow with PCP in 2 chu. 4. Polysubstance abuse/Alcohol abuse and Tobacco dependence strongly recommended about this kind of behavior consulted network services project manager to try to find resources in the community to help the patient. Code Status Full Code. Discussed Condition With patient and nurse Mr. Delacruz, all questions answered to the best of my abilities. Discharge Planning Discharge Home Marcos Ramos MD May 05, 2017 12:34
--- NOTE | 2017-05-05 13:15 | HHI.DS ---
Discharge Summary Admission Date May 04, 2017 at 02:12 Discharge Date: May 05, 2017 Admitting Diagnosis acute renal failure, elevated CK, substance abuse (1) Rhabdomyolysis ICD Code: M62.82 - Rhabdomyolysis Diagnosis: Principal (2) Acute renal failure ICD Code: N17.9 - Acute kidney failure, unspecified Diagnosis: Principal Status: Acute (3) Polysubstance abuse ICD Code: F19.10 - Other psychoactive substance abuse, uncomplicated Status: Acute Procedures None Brief History - From Admission This is a pleasant 36 y/o Male with history of Polysubstance abuse, came to ER with Possible dehydration after using Laury (Ecstasy) 3 days ago dehydrated, as per patient this was a relapse, He did inject Laury one time during his binge. Patient denies suicidal or homicidal ideations. came to ER with Anxiety, This is consistent for when he is coming off of his Laury binges. seen in his bedroom in the presence of nurse Mr. Delacruz patient stable receiving IV fluids for Rhabdomyolysis will follow closely. CBC/BMP: 05/05/17 0940 05/05/17 0940 Significant Findings Laboratory Tests Test 05/04/17 00:40 05/04/17 00:45 05/04/17 01:20 05/04/17 02:08 Blood Urea Nitrogen 54 MG/DL (7-18) Creatinine 5.54 MG/DL (0.60-1.30) Random Glucose 73 MG/DL (74-106) Total Protein 9.6 GM/DL (6.4-8.2) Aspartate Amino Transf (AST/SGOT) 58 U/L (15-37) Total Bilirubin 1.2 MG/DL (0.2-1.0) Chloride Level 96 MEQ/L (98-107) Carbon Dioxide Level 18.7 MEQ/L (21.0-32.0) Anion Gap 22 MEQ/L (5-15) Estimat Glomerular Filtration Rate 14 ML/MIN (>89) Total Creatine Kinase 869 U/L (39-308) Creatine Kinase MB 15.5 NG/ML (0.5-3.6) Acetaminophen Level LESS THAN 2.0 MCG/ML White Blood Count 11.2 TH/MM3 (4.0-11.0) Hemoglobin 12.5 GM/DL (13.0-17.0) Hematocrit 38.0 % (39.0-51.0) Mean Corpuscular Volume 78.5 FL (80.0-100.0) Mean Corpuscular Hemoglobin 25.8 PG (27.0-34.0) Mean Platelet Volume 6.8 FL (7.0-11.0) Neutrophils (%) (Auto) 75.1 % (16.0-70.0) Monocytes (%) (Auto) 8.4 % (0.0-8.0) Neutrophils # (Auto) 8.4 TH/MM3 (1.8-7.7) Salicylates Level LESS THAN 1.7 MG/DL Urine Benzodiazepines Screen POS (NEG) Test 05/04/17 13:05 05/05/17 09:40 Blood Urea Nitrogen 44 MG/DL (7-18) 27 MG/DL (7-18) Creatinine 2.36 MG/DL (0.60-1.30) Calcium Level 8.3 MG/DL (8.5-10.1) 8.0 MG/DL (8.5-10.1) Estimat Glomerular Filtration Rate 38 ML/MIN (>89) Total Creatine Kinase 3023 U/L (39-308) 2092 U/L (39-308) Creatine Kinase MB 34.6 NG/ML (0.5-3.6) Red Blood Count 4.44 MIL/MM3 (4.50-5.90) Hemoglobin 11.6 GM/DL (13.0-17.0) Hematocrit 35.5 % (39.0-51.0) Mean Corpuscular Volume 79.9 FL (80.0-100.0) Mean Corpuscular Hemoglobin 26.2 PG (27.0-34.0) Mean Platelet Volume 6.8 FL (7.0-11.0) Monocytes (%) (Auto) 9.5 % (0.0-8.0) Chloride Level 113 MEQ/L (98-107) Imaging No imaging studies PE at Discharge GENERAL: Alert and oriented, no distress SKIN: Focused skin assessment warm/dry. Multiple superficial scratches over his extremities. HEAD: Atraumatic. Normocephalic. EYES: Pupils equal and round. No scleral icterus. No injection or drainage. ENT: No nasal bleeding or discharge. Mucous membranes pink and moist. NECK: Trachea midline. No JVD. CARDIOVASCULAR: Tachycardic rate and rhythm. RESPIRATORY: No accessory muscle use. Clear to auscultation. Breath sounds equal bilaterally. GASTROINTESTINAL: Abdomen soft, non-tender, nondistended. Hepatic and splenic margins not palpable. MUSCULOSKELETAL: No obvious deformities. No clubbing. No cyanosis. No edema. NEUROLOGICAL: Awake and alert. No obvious cranial nerve deficits. Motor grossly within normal limits. Normal speech. Hospital Course This is a pleasant 36 y/o Male with history of Polysubstance abuse, came to ER with Possible dehydration after using Laury (Ecstasy) 3 days ago dehydrated, as per patient this was a relapse, He did inject Laury one time during his binge. Patient denies suicidal or homicidal ideations. came to ER with Anxiety, This is consistent for when he is coming off of his Laury binges. seen in his bedroom in the presence of nurse Mr. Delacruz patient stable receiving IV fluids for Rhabdomyolysis will follow closely. Seen in his bedroom stable he wants to go home his renal function improved and is improving his Creatinine level, at this time okay to discharge Home and follow with PCP in 2 days. recommended to continue drinking water. Assessment and Plan 1. Acute Kidney Injury Improved 2. Dehydration improved 3. Rhabdomyolysis waiting new CK 2092 asked to continue drinking fluids and follow with PCP in 2 chu. 4. Polysubstance abuse/Alcohol abuse and Tobacco dependence strongly recommended about this kind of behavior consulted dietary manager to try to find resources in the community to help the patient. Code Status Full Code. Discussed Condition With patient and nurse Mr. Delacruz, all questions answered to the best of my abilities. Discharge Planning Discharge Home Pt Condition on Discharge: Good Discharge Disposition: Discharge Home Discharge Time: <= 30 minutes Discharge Instructions DIET: Follow Instructions for: As Tolerated, No Restrictions Activities you can perform: Regular-No Restrictions Marcos Ramos MD May 05, 2017 13:15
== END 2017-05-05 15:11 | disposition home or self-care (01) | DRG 683 ==
LOC: NEPD 21:13 → NEDA 05-04 02:12 → N05B 05-04 04:33
PROVIDERS: ADMIT Internal Medicine; ATTEND Internal Medicine
DX: N17.9 Acute kidney failure, unspecified (principal); M62.82 Rhabdomyolysis; E86.0 Dehydration; F17.210 Nicotine dependence, cigarettes, uncomplicated; F19.10 Other psychoactive substance abuse, uncomplicated; F10.10 Alcohol abuse, uncomplicated; F41.9 Anxiety disorder, unspecified; F90.9 Attention-deficit hyperactivity disorder, unspecified type
CPT/HCPCS: 76937; 80048; 80053; 80307; 82550; 82552; 83605; 85025; 93005; 96360; J7030